=== PATIENT | male | born 1965 | race Caucasian/White ===

== ENCOUNTER 2018-12-05 02:59 | Emergency (ER) | payer MEDICAID ==
[~2018-12-05] VITALS: Ht 167.6 cm; Wt 64.0 kg
[~2018-12-05 02:59] MED LIST: HYDR-519 PO; MULT-1146 PO; OMEP20CA5 PO
[2018-12-05 03:06] VITALS: BP 150/90
== END 2018-12-05 06:35 | disposition left against medical advice (07) ==
LOC: ER 02:59
DX: Z53.21 Procedure and treatment not carried out due to patient leaving prior to being seen by health care provider (principal)

== ENCOUNTER 2019-04-30 02:52 | Emergency (ER) | payer MEDICAID ==
[~2019-04-30] VITALS: Ht 172.7 cm; Wt 75.0 kg
[~2019-04-30 02:52] MED LIST changes: +OMEP20CA14 PO; -OMEP20CA5 PO
[2019-04-30 03:20] VITALS: BP 105/67
[2019-04-30] MEDS ORDERED: IBUPROFEN 400MG TABLET PO ONE (04:45)
== END 2019-04-30 04:45 | disposition left against medical advice (07) ==
LOC: ER 02:52
DX: M25.512 Pain in left shoulder (principal); I10 Essential (primary) hypertension; F17.200 Nicotine dependence, unspecified, uncomplicated; Z79.899 Other long term (current) drug therapy
CPT/HCPCS: 99283

== ENCOUNTER 2019-08-02 22:26 | Emergency (ER) | payer MEDICAID ==
[~2019-08-02] VITALS: Ht 172.7 cm; Wt 61.0 kg
[~2019-08-02 22:26] MED LIST changes: +CYAN50003 MT; +ERGO400C MT; +GABA-529 MT; +SUCR1TAB30 PO
[2019-08-02] MEDS ORDERED: ONDANSETRON HCL 4MG/2ML INJ IV ONE (23:30)
[2019-08-02] MEDS ORDERED: MORPHINE SULFATE 4 MG/ML CPJ (NOT FOR IM USE) IV ONE (23:30)
[2019-08-02] MEDS ORDERED: SODIUM CHLORIDE 0.9% 1,000 ML IV ONE (23:30)
[2019-08-02 23:49] LABS: BASOPHILS % 0.7 % (0.0-2.0); EOSINOPHILS % 4.1 % (0.0-5.0); HEMATOCRIT. 38.6 % (42.0-52.0); HEMOGLOBIN. 13.1 g/dL (14.0-18.0); LYMPHOCYTES % 40.9 % (20.0-50.0); MEAN CORPUSCULAR HEMOGLOBIN 34.3 pg (28.0-32.0); MEAN CORPUSCULAR VOLUME 100.7 fL (80.0-94.0); MEAN PLATELET VOLUME 6.5 fl (7.4-10.4); MONOCYTES % 10.7 % (2.0-8.0); NEUTROPHILS % 43.6 % (40.0-76.0); PLATELET 260 x1000/uL (130-400); RED BLOOD CELL COUNT 3.83 mill/uL (4.7-6.1); RED CELL DISTRIBUTION WIDTH 13.6 % (11.6-14.6)
[2019-08-02 23:51] LABS: CHLORIDE 107 mEq/L (98-107)
[2019-08-02 23:54] LABS: ETHANOL BLOOD 178 mg/dL
[2019-08-03 03:59] LABS: CLARITY URINE CLEAR (CLEAR); COLOR URINE YELLOW (YELLOW); KETONES URINE NEGATIVE (NEGATIVE); LEUKOCYTE ESTERASE URINE NEGATIVE (NEGATIVE); NITRITE URINE NEGATIVE (NEGATIVE); OCCULT BLOOD URINE NEGATIVE (NEGATIVE); PH URINE 5.5 (4.5-8.0); PROTEIN URINE NEGATIVE (NEGATIVE); SPECIFIC GRAVITY URINE 1.044 (1.005-1.030); UROBILINOGEN URINE 0.2 E.U./dL (0.2-1.0)
[2019-08-03 04:09] LABS: *AMPHETAMINES SCREEN URINE NEGATIVE (NEGATIVE); *BARBITURATES SCREEN URINE NEGATIVE (NEGATIVE); *BENZODIAZEPINES SCREEN URINE NEGATIVE (NEGATIVE); *COCAINE SCREEN URINE PRESUMTIVE POSITIVE (NEGATIVE); METHADONE URINE SCREEN NEGATIVE (NEGATIVE); OPIATES URINE SCREEN PRESUMTIVE POSITIVE (NEGATIVE)
[2019-08-03 04:10] LABS: CANNABINOID URINE SCREEN PRESUMTIVE POSITIVE (NEGATIVE); PHENCYCLIDINE URINE SCREEN NEGATIVE (NEGATIVE)
[2019-08-03] MEDS ORDERED: IOHEXOL-350 100 ML BOTTLE ONE (04:26)
[2019-08-03] MEDS ORDERED: IOHEXOL-300 100 ML BOTTLE ONE (04:27)
[2019-08-03 04:32] VITALS: BP 133/85
== END 2019-08-03 04:34 | disposition home or self-care (01) ==
LOC: ER 22:26
DX: R07.89 Other chest pain (principal); F14.10 Cocaine abuse, uncomplicated; F12.10 Cannabis abuse, uncomplicated; C16.9 Malignant neoplasm of stomach, unspecified; R03.0 Elevated blood-pressure reading, without diagnosis of hypertension
CPT/HCPCS: 36415; 71045; 74177; 80053; 80305; 80320; 81003; 83880; 84484; 85025; 93005; 96374; 96375; 99285; J2270; J2405; J7030; Q9967; G0480

== ENCOUNTER 2019-08-12 19:47 | Emergency (ER) | payer MEDICAID ==
[~2019-08-12] VITALS: Ht 167.6 cm; Wt 62.0 kg
[2019-08-12] MEDS ORDERED: HYDROCODONE/ACETAMINOPHEN 10/325MG TABLET PO ONE (21:00)
[2019-08-12 21:14] VITALS: BP 122/84
[2019-08-12] MEDS ORDERED: BACITRACIN ZINC OINT UDPKT TOP ONE (21:45)
[2019-08-12] MEDS ORDERED: LIDOCAINE 1%/EPI 1:100,000 10 ML VIAL IJ ONE (21:45)
[2019-08-12] MEDS ORDERED: TETANUS, DIPHTHERIA, PERTUSSIS VAC/PF 0.5ML (>7YR OLD) IM ONE (21:45)
[2019-08-12] MEDS ORDERED: AMOXICILLIN/POTASSIUM CLAVULANATE 875/125MG TAB PO ONE (21:45)
[2019-08-12] MEDS ORDERED: LIDOCAINE HCL/EPINEPHRINE 1%-EPI 1:100,000 20 ML VIAL INFIL ONE (22:15)
== END 2019-08-12 23:17 | disposition home or self-care (01) ==
LOC: ER 19:47
DX: S51.851A Open bite of right forearm, initial encounter (principal); S51.051A Open bite, right elbow, initial encounter; Z85.9 Personal history of malignant neoplasm, unspecified; W54.0XXA Bitten by dog, initial encounter; Y93.89 Activity, other specified; Y92.018 Other place in single-family (private) house as the place of occurrence of the external cause
CPT/HCPCS: 12002; 73070; 73090; 90471; 90715; 99284; J3490

== ENCOUNTER 2019-08-16 08:28 | Emergency (ER) | payer MEDICAID ==
[~2019-08-16] VITALS: Ht 172.7 cm; Wt 62.0 kg
[2019-08-16 08:34] VITALS: BP 124/90
== END 2019-08-16 09:28 | disposition home or self-care (01) ==
LOC: ER 08:28
DX: S51.811D Laceration without foreign body of right forearm, subsequent encounter (principal); Z79.899 Other long term (current) drug therapy; Z98.890 Other specified postprocedural states; X58.XXXD Exposure to other specified factors, subsequent encounter
CPT/HCPCS: 99281; 99282

== ENCOUNTER 2019-09-01 01:17 | Emergency (ER) | payer MEDICAID ==
[~2019-09-01] VITALS: Ht 167.6 cm; Wt 65.0 kg
[2019-09-01 01:40] VITALS: BP 142/76
== END 2019-09-01 02:20 | disposition home or self-care (01) ==
LOC: ER 01:24
DX: S00.81XA Abrasion of other part of head, initial encounter (principal); Z79.899 Other long term (current) drug therapy; Y04.0XXA Assault by unarmed brawl or fight, initial encounter; Y93.89 Activity, other specified; Y92.89 Other specified places as the place of occurrence of the external cause; Y99.8 Other external cause status
CPT/HCPCS: 99283

== ENCOUNTER 2019-10-30 06:42 | Emergency (ER) | payer MEDICAID ==
[~2019-10-30] VITALS: Ht 172.7 cm; Wt 77.0 kg
[2019-10-30 07:21] LABS: BASOPHILS % 0.6 % (0.0-2.0); EOSINOPHILS % 2.2 % (0.0-5.0); HEMATOCRIT. 34.5 % (42.0-52.0); HEMOGLOBIN. 12.1 g/dL (14.0-18.0); LYMPHOCYTES % 12.6 % (20.0-50.0); MEAN CORPUSCULAR HEMOGLOBIN 35.2 pg (28.0-32.0); MEAN PLATELET VOLUME 6.8 fl (7.4-10.4); MONOCYTES % 10.1 % (2.0-8.0); NEUTROPHILS % 74.5 % (40.0-76.0); PLATELET 219 x1000/uL (130-400); RED BLOOD CELL COUNT 3.45 mill/uL (4.7-6.1); RED CELL DISTRIBUTION WIDTH 14.8 % (11.6-14.6)
[2019-10-30 07:27] LABS: PROTHROMBIN TIME 10.6 sec (9.6-11.0)
[2019-10-30 08:19] LABS: CHLORIDE 106 mEq/L (98-107)
[2019-10-30 08:23] LABS: ETHANOL BLOOD < 10 mg/dL
[2019-10-30 08:26] LABS: LDL CHOLESTEROL 59 mg/dL (5-100)
[2019-10-30 09:02] LABS: CLARITY URINE CLEAR (CLEAR); COLOR URINE DARK YELLOW (YELLOW); KETONES URINE TRACE (NEGATIVE); LEUKOCYTE ESTERASE URINE TRACE (NEGATIVE); NITRITE URINE NEGATIVE (NEGATIVE); OCCULT BLOOD URINE TRACE (NEGATIVE); PROTEIN URINE TRACE (NEGATIVE); SPECIFIC GRAVITY URINE 1.025 (1.005-1.030)
[2019-10-30] MEDS ORDERED: IOHEXOL-350 100 ML BOTTLE ONE (09:21)
[2019-10-30 09:38] LABS: *AMPHETAMINES SCREEN URINE PRESUMTIVE POSITIVE (NEGATIVE)
[2019-10-30 09:39] LABS: *BARBITURATES SCREEN URINE NEGATIVE (NEGATIVE); *BENZODIAZEPINES SCREEN URINE NEGATIVE (NEGATIVE); *COCAINE SCREEN URINE PRESUMTIVE POSITIVE (NEGATIVE); METHADONE URINE SCREEN NEGATIVE (NEGATIVE); OPIATES URINE SCREEN NEGATIVE (NEGATIVE); PHENCYCLIDINE URINE SCREEN NEGATIVE (NEGATIVE)
[2019-10-30 09:40] LABS: CANNABINOID URINE SCREEN PRESUMTIVE POSITIVE (NEGATIVE)
[2019-10-30] MEDS ORDERED: ASPIRIN 325MG EC TABLET PO ONE (09:45)
[2019-10-30 09:55] VITALS: BP 136/87
[2019-10-30] MEDS ORDERED: DIPHENHYDRAMINE 50MG/ML VIAL IV PRN (10:00)
[2019-10-30] MEDS ORDERED: ACETAMINOPHEN 325MG TABLET PO PRN (10:00)
[2019-10-30] MEDS ORDERED: ONDANSETRON HCL 4MG/2ML INJ IV PRN (10:00)
[2019-10-30] MEDS ORDERED: CLONIDINE 0.1MG TABLET PO PRN (10:00)
[2019-10-30] MEDS ORDERED: IPRATROPIUM/ALBUTEROL 0.5-3(2.5)MG/3ML NEB HHN PRN (10:00)
[2019-10-30] MEDS ORDERED: ENOXAPARIN 40MG/0.4ML SYR SUBCUT SCH (11:00)
[2019-10-30 11:19] LABS: PHOSPHORUS 3.8 mg/dL (2.5-4.9)
[2019-10-30 14:07] LABS: FOLIC ACID (FOLATE) SERUM >20 ng/mL ng/mL (>5.38)
[2019-10-30 14:19] LABS: VITAMIN B12 SERUM 595 pg/mL (211-911)
== END 2019-10-30 12:30 | disposition left against medical advice (07) ==
LOC: ER 06:42 → EDBEDREQ 09:37 → EDBEDREQTM 09:37 → ER 12:30 → CANBEDREQ 12:56
DX: I63.9 Cerebral infarction, unspecified (principal); R20.0 Anesthesia of skin; D53.9 Nutritional anemia, unspecified; F12.10 Cannabis abuse, uncomplicated; F15.10 Other stimulant abuse, uncomplicated; Z85.028 Personal history of other malignant neoplasm of stomach; Z79.899 Other long term (current) drug therapy
CPT/HCPCS: 36415; 70450; 70496; 70498; 70551; 71045; 80053; 80305; 80320; 81003; 82607; 82746; 82962; 83721; 83735; 84100; 84484; 85025; 85610; 93005; 93970; 99285; Q9967; G0480

== ENCOUNTER 2019-11-30 00:22 | Emergency (ER) | payer MEDICAID ==
[~2019-11-30] VITALS: Ht 172.7 cm; Wt 64.0 kg
[2019-11-30] MEDS ORDERED: KETOROLAC 30MG/ML VIAL IM ONE (01:00)
[2019-11-30] MEDS ORDERED: HYDROCODONE/ACETAMINOPHEN 5/325MG TABLET PO ONE (01:00)
[2019-11-30 07:58] VITALS: BP 158/69
== END 2019-11-30 07:59 | disposition home or self-care (01) ==
LOC: ER 00:22
DX: S10.93XA Contusion of unspecified part of neck, initial encounter (principal); S40.012A Contusion of left shoulder, initial encounter; S40.011A Contusion of right shoulder, initial encounter; S80.11XA Contusion of right lower leg, initial encounter; S30.1XXA Contusion of abdominal wall, initial encounter; I10 Essential (primary) hypertension; E78.00 Pure hypercholesterolemia, unspecified; F12.10 Cannabis abuse, uncomplicated; Z85.028 Personal history of other malignant neoplasm of stomach; Z92.3 Personal history of irradiation; Z92.21 Personal history of antineoplastic chemotherapy; Y04.0XXA Assault by unarmed brawl or fight, initial encounter; Y07.499 Other family member, perpetrator of maltreatment and neglect; Y93.89 Activity, other specified; Y92.018 Other place in single-family (private) house as the place of occurrence of the external cause
CPT/HCPCS: 71045; 71110; 72040; 72125; 73030; 73060; 73560; 73590; 96372; 99285; J1885

== ENCOUNTER 2019-11-30 19:13 | Emergency (ER) | payer MEDICAID ==
[~2019-11-30] VITALS: Ht 167.6 cm; Wt 69.0 kg
[2019-11-30 19:28] VITALS: BP 120/86
== END 2019-11-30 20:01 | disposition left against medical advice (07) ==
LOC: ER 19:13
DX: M25.561 Pain in right knee (principal); M25.512 Pain in left shoulder; Z53.21 Procedure and treatment not carried out due to patient leaving prior to being seen by health care provider

== ENCOUNTER → 2019-12-01 09:49 | Emergency (ER) | payer MEDICAID | END | disposition left against medical advice (07) | LOC: ER 09:49 | DX: F10.129 Alcohol abuse with intoxication, unspecified (principal); Z53.21 Procedure and treatment not carried out due to patient leaving prior to being seen by health care provider; Y90.9 Presence of alcohol in blood, level not specified ==

== ENCOUNTER 2019-12-03 12:19 | Emergency (ER) | payer MEDICAID ==
[~2019-12-03] VITALS: Ht 170.2 cm; Wt 68.0 kg
[2019-12-03 12:23] VITALS: BP 134/78
[2019-12-03] MEDS ORDERED: HYDROCODONE/ACETAMINOPHEN 5/325MG TABLET PO ONE (13:00)
[2019-12-03] MEDS ORDERED: MORPHINE SULFATE 4 MG/ML CPJ (NOT FOR IM USE) IV STA (13:04)
[2019-12-03] MEDS ORDERED: ONDANSETRON HCL 4MG/2ML INJ IV STA (13:04)
== END 2019-12-03 15:10 | disposition left against medical advice (07) ==
LOC: ER 12:24
DX: S80.01XA Contusion of right knee, initial encounter (principal); S60.222A Contusion of left hand, initial encounter; S60.221A Contusion of right hand, initial encounter; S30.1XXA Contusion of abdominal wall, initial encounter; S20.219A Contusion of unspecified front wall of thorax, initial encounter; I10 Essential (primary) hypertension; F10.20 Alcohol dependence, uncomplicated; F12.10 Cannabis abuse, uncomplicated; Z79.899 Other long term (current) drug therapy; Z85.028 Personal history of other malignant neoplasm of stomach; Y04.0XXA Assault by unarmed brawl or fight, initial encounter; Y93.89 Activity, other specified; Y92.89 Other specified places as the place of occurrence of the external cause; Y99.8 Other external cause status; Y90.9 Presence of alcohol in blood, level not specified
CPT/HCPCS: 99283

== ENCOUNTER 2019-12-03 22:49 | Emergency (ER) | payer MEDICAID ==
[~2019-12-03] VITALS: Ht 177.8 cm; Wt 79.0 kg
[2019-12-03 23:01] VITALS: BP 146/84
== END 2019-12-03 23:20 | disposition left against medical advice (07) ==
LOC: ER 22:49
DX: R51 Headache (principal); Z53.21 Procedure and treatment not carried out due to patient leaving prior to being seen by health care provider

== ENCOUNTER 2020-05-13 02:11 | Emergency (ER) | payer MEDICAID ==
[~2020-05-13] VITALS: Ht 172.7 cm; Wt 61.3 kg
[2020-05-13] MEDS ORDERED: MORPHINE SULFATE 4 MG/ML CPJ (NOT FOR IM USE) IV ONE (03:00)
[2020-05-13] MEDS ORDERED: ACETAMINOPHEN 325MG TABLET PO ONE (03:00)
[2020-05-13] MEDS ORDERED: ONDANSETRON HCL 4MG/2ML INJ IV ONE (03:00)
[2020-05-13] MEDS ORDERED: TRAMADOL 50MG TABLET PO ONE (03:00)
[2020-05-13 03:41] VITALS: BP 138/85
[2020-05-13] MEDS ORDERED: LIDOCAINE HCL/EPINEPHRINE 1%-EPI 1:100,000 20 ML VIAL INFIL NR (04:00)
[2020-05-13] MEDS ORDERED: LIDOCAINE 1%/EPI 1:100,000 10 ML VIAL IJ ONE (04:00)
[2020-05-13] MEDS ORDERED: BACITRACIN ZINC OINT UDPKT TOP ONE (04:00)
== END 2020-05-13 04:49 | disposition home or self-care (01) ==
LOC: ER 02:11
DX: S06.899A Other specified intracranial injury with loss of consciousness of unspecified duration, initial encounter (principal); S01.81XA Laceration without foreign body of other part of head, initial encounter; W01.190A Fall on same level from slipping, tripping and stumbling with subsequent striking against furniture, initial encounter; Y93.89 Activity, other specified; Y92.032 Bedroom in apartment as the place of occurrence of the external cause; C16.9 Malignant neoplasm of stomach, unspecified; Z98.890 Other specified postprocedural states; Z92.3 Personal history of irradiation; Z92.21 Personal history of antineoplastic chemotherapy; Z79.899 Other long term (current) drug therapy
CPT/HCPCS: 12011; 70450; 96374; 96375; 99284; A4217; J2270; J2405; J3490; Z7610